=== PATIENT | male | born 1995 | race Caucasian/White ===

== ENCOUNTER 2021-01-09 17:31 | Inpatient (IN) | payer OTHER ==
[~2021-01-09] VITALS: Ht 190.5 cm; Wt 98.6 kg
[2021-01-09] MEDS ORDERED: 0.9%NACL 1000ML 1,000 ML IV ONE ×2 (17:48→19:14)
[2021-01-09] MEDS ORDERED: ONDANSETRON 4MG INJ ONE (17:48)
[2021-01-09] MEDS ORDERED: KETOROLAC 30MG VIAL (30MG/ML) ONE (17:48)
[2021-01-09 18:08] LABS: BASOPHILS % (AUTO) 0.8 % (0.0-5.0); EOSINOPHILS % (AUTO) 1.4 % (0.0-8.0); HEMATOCRIT 47.8 % (42-54); LYMPHOCYTES % (AUTO) 26.1 % (21.0-51.0); MEAN CORPUSCULAR HEMOGLOBIN 28.2 pg (27.0-33.0); MEAN CORPUSCULAR HGB CONC 35.1 g/dL (32.0-36.0); MEAN CORPUSCULAR VOLUME 80.3 fL (79-99); MONOCYTES % (AUTO) 10.3 % (3.0-13.0); NEUTROPHILS % (AUTO) 61.1 % (40.0-77.0); PLATELET COUNT (AUTO) 299 K/uL (130-400); RED BLOOD CELL COUNT(AUTO) 5.95 MIL/uL (4.50-6.20); RED CELL DISTRIBUTION WIDTH 14.1 % (11.0-15.5); WHITE BLOOD COUNT (AUTO) 9.7 K/uL (4.8-10.8)
[2021-01-09 18:09] LABS: APPEARANCE,URINE Clear (CLEAR); BILIRUBIN,URINE Negative (NEGATIVE); COLOR,URINE Yellow (YELLOW); GLUCOSE, URINE (UA) >=1000 mg/dL (NEGATIVE); KETONES,URINE >=160 mg/dL (NEGATIVE); LEUKOCYTE ESTERASE ,URINE Negative (NEGATIVE); NITRATE,URINE Negative (NEGATIVE); OCCULT BLOOD,URINE Negative (NEGATIVE); PROTEIN,URINE POS 1+ mg/dL (NEGATIVE); UROBILINOGEN,URINE 0.2 mg/dL (0.2-1.0)
[2021-01-09 18:15] LABS: AMPHET/METH SCREEN,URINE NEGATIVE (NEGATIVE); BARBITURATE SCREEN, URINE NEGATIVE (NEGATIVE); BENZODIAZEPINES SCREEN,URINE NEGATIVE (NEGATIVE); CANNABINOID SCREEN,URINE NEGATIVE (NEGATIVE); COCAINE SCREEN,URINE NEGATIVE (NEGATIVE); OPIATE SCREEN,URINE NEGATIVE (NEGATIVE); PHENCYCLIDINE SCREEN,URINE NEGATIVE (NEGATIVE)
[2021-01-09 18:19] LABS: RBC,URINE None Seen /HPF (0-1); WBC,URINE None Seen /HPF (0-1)
[2021-01-09 18:20] LABS: BACTERIA,URINE Rare /HPF (None Seen); SQUAMOUS EPITHELIAL CELL,UR 0-2 /HPF (0-2)
[2021-01-09 18:22] LABS: CREATININE 1.4 mg/dL (0.5-1.5); POTASSIUM 3.7 mmol/L (3.5-5.1)
[2021-01-09 18:29] LABS: ALBUMIN 4.1 g/dL (3.5-5.0); TOTAL PROTEIN, SERUM 7.6 g/dL (6.0-8.3)
[2021-01-09 18:46] LABS: ABG BASE EXCESS -12.6 mmol/L (-2.0-3.0); ABG HCO3 11.7 mmol/L (21.0-28.0); ABG OXYGEN SATURATION 97.5 % (95.0-99.0); ABG PCO2 24 mmHg (35-48)
[2021-01-09] MEDS ORDERED: INSULIN HUMULIN R 100 UNIT/ML 3ML ONE ×2 (19:13→21:55)
[2021-01-09] MEDS ORDERED: 0.9%NACL 100ML 100 ML IV ONE (21:56)
[2021-01-09] MEDS ORDERED: POTASSIUM CHLORIDE 20MEQ/100ML 100 ML IV ONE (22:48)
[2021-01-09 23:32] VITALS: BP 140/68
[2021-01-09 23:47] VITALS: BP 148/99
[2021-01-10] VITALS (31 sets, daily range): BP systolic 117–167; BP diastolic 45–99
[2021-01-10 00:09] LABS: CREATININE 1.2 mg/dL (0.5-1.5); MAGNESIUM 1.8 mg/dL (1.80-2.40); POTASSIUM 3.5 mmol/L (3.5-5.1)
[2021-01-10] MEDS ORDERED: PROMETHAZINE HCL 25 MG/ML 1ML AMPULE IM PRN (01:15)
[2021-01-10] MEDS ORDERED: POTASSIUM CHLORIDE 20MEQ/10ML 0 MEQ in 0.9%NACL 1000ML 1,000 ML IV SCH (01:15)
[2021-01-10] MEDS ORDERED: ONDANSETRON 4MG INJ IVP PRN (01:15)
[2021-01-10] MEDS ORDERED: NS-20 MEQ KCL 1000ML 1,000 ML IV ONE (01:56)
[2021-01-10] MEDS ORDERED: POTASSIUM CHLORIDE 20MEQ/100ML 100 ML IV ONE (01:59)
[2021-01-10] MEDS ORDERED: MAGN400T40 PO (02:06)
[2021-01-10] MEDS ORDERED: LORA10TA7 PO (02:06)
[2021-01-10] MEDS ORDERED: FLUT200B IH (02:06)
[2021-01-10] MEDS ORDERED: BUPR100T13 PO (02:06)
[2021-01-10] MEDS ORDERED: TOPI25TA48 PO (02:06)
[2021-01-10] MEDS ORDERED: DOXY100T21 PO (02:06)
[2021-01-10] MEDS ORDERED: METF-444 PO (02:06)
[2021-01-10] MEDS ORDERED: 0.9%NACL 100ML 100 ML IV ONE (02:18)
[2021-01-10] MEDS: MAGNESIUM 2GM PREMIX 50ML 50 ML IV PRN (03:18)
[2021-01-10 04:01] LABS: HEMATOCRIT 45.1 % (42-54); MEAN CORPUSCULAR HEMOGLOBIN 27.3 pg (27.0-33.0); MEAN CORPUSCULAR HGB CONC 33.5 g/dL (32.0-36.0); MEAN CORPUSCULAR VOLUME 81.4 fL (79-99); PLATELET COUNT (AUTO) 284 K/uL (130-400); RED BLOOD CELL COUNT(AUTO) 5.54 MIL/uL (4.50-6.20); RED CELL DISTRIBUTION WIDTH 14.3 % (11.0-15.5); WHITE BLOOD COUNT (AUTO) 8.7 K/uL (4.8-10.8)
[2021-01-10 04:18] LABS: ALBUMIN 3.6 g/dL (3.5-5.0); CREATININE 1.5 mg/dL (0.5-1.5); TOTAL PROTEIN, SERUM 6.9 g/dL (6.0-8.3)
[2021-01-10 05:19] LABS: BAND NEUTROPHILS % (MANUAL) 1 % (0-2); EOSINOPHILS % (MANUAL) 2 % (1-6); LYMPHOCYTES % (MANUAL) 27 % (22-44); MAN.DIFF COMMENT-IMPRESSION MANUAL DIFFERENTIAL; MONOCYTES % (MANUAL) 6 % (2-9); SEGMENTED NEUTROPHILS % 64 % (40-70)
[2021-01-10 05:20] LABS: PLATELET MORPHOLOGY COMMENT ADEQUATE
[2021-01-10] MEDS ORDERED: 0.9%NACL 1000ML 1,000 ML IV SCH (09:00)
[2021-01-10] MEDS ORDERED: BISACODYL 10 MG SUPP.RECT RC PRN (09:00)
[2021-01-10 09:11] LABS: CREATININE 1.4 mg/dL (0.5-1.5); MAGNESIUM 2.2 mg/dL (1.80-2.40); POTASSIUM 3.5 mmol/L (3.5-5.1)
[2021-01-10] MEDS ORDERED: MAGNESIUM 2GM PREMIX 50ML 50 ML IV PRN (09:15)
[2021-01-10] MEDS: TOPIRAMATE 25 MG TABLET PO SCH ×2 (10:46→20:36)
[2021-01-10] MEDS: PANTOPRAZOLE 40 MG/VIAL IVP SCH ×2 (10:46→20:36)
[2021-01-10] MEDS: BUPROPION HCL 150 MG TABLET.SA PO SCH ×2 (10:46→20:36)
[2021-01-10] MEDS: ENOXAPARIN SODIUM 40 MG/0.4 ML SYRINGE SQ SCH (10:47)
[2021-01-10] MEDS ORDERED: LABETALOL 20MG VIAL IV PRN (12:15)
[2021-01-10 12:48] LABS: CREATININE 1.3 mg/dL (0.5-1.5); POTASSIUM 3.5 mmol/L (3.5-5.1)
[2021-01-10] MEDS: [UNRECOGNIZED DRUG - OTHER] IV SCH (13:06)
[2021-01-10] MEDS: POTASSIUM CHLORIDE IV SCH (13:06)
[2021-01-10] MEDS: INSULIN REGULAR, HUMAN 3ML 100 UNIT in 0.9%NACL 100ML 99 ML IV PRN ×2 (13:12)
[2021-01-10] MEDS: KCL 20 MEQ ERTAB PO PRN ×2 (14:20→17:06)
[2021-01-10 16:25] LABS: CREATININE 1.3 mg/dL (0.5-1.5); POTASSIUM 3.5 mmol/L (3.5-5.1)
[2021-01-10] MEDS: LACTATED RINGERS 1000ML 1,000 ML IV SCH ×2 (17:37→21:46)
[2021-01-10 20:48] LABS: CREATININE 1.3 mg/dL (0.5-1.5); POTASSIUM 3.3 mmol/L (3.5-5.1)
[2021-01-11] VITALS (33 sets, daily range): BP systolic 102–164; BP diastolic 48–93
[2021-01-11 03:30] LABS: HEMATOCRIT 41.2 % (42-54); MEAN CORPUSCULAR HEMOGLOBIN 27.9 pg (27.0-33.0); MEAN CORPUSCULAR HGB CONC 34.2 g/dL (32.0-36.0); MEAN CORPUSCULAR VOLUME 81.4 fL (79-99); RED BLOOD CELL COUNT(AUTO) 5.06 MIL/uL (4.50-6.20); RED CELL DISTRIBUTION WIDTH 14.9 % (11.0-15.5); WHITE BLOOD COUNT (AUTO) 6.5 K/uL (4.8-10.8)
[2021-01-11 03:43] LABS: CREATININE 1.2 mg/dL (0.5-1.5); MAGNESIUM 1.7 mg/dL (1.80-2.40); POTASSIUM 3.3 mmol/L (3.5-5.1)
[2021-01-11] MEDS: LACTATED RINGERS 1000ML 1,000 ML IV SCH ×3 (06:15→22:15)
[2021-01-11 07:49] LABS: HEMOGLOBIN A1C 11.3 % (4.0-6.0)
[2021-01-11 07:55] LABS: ABG OXYGEN SATURATION 66.9 % (95.0-99.0); BASE EXCESS,VENOUS BLOOD GAS -6.3 (-2.0-3.0); HCO3,VENOUS BLOOD GAS 18.3 (21.0-28.0); PCO2,VENOUS BLOOD GAS 34 (35-48); PH,VENOUS BLOOD GAS 7.346 (7.350-7.450)
[2021-01-11] MEDS: BUPROPION HCL 150 MG TABLET.SA PO SCH ×2 (08:38→20:00)
[2021-01-11] MEDS: PANTOPRAZOLE 40 MG/VIAL IVP SCH ×2 (08:38→20:00)
[2021-01-11] MEDS: TOPIRAMATE 25 MG TABLET PO SCH ×2 (08:39→20:00)
[2021-01-11] MEDS: ENOXAPARIN SODIUM 40 MG/0.4 ML SYRINGE SQ SCH (08:40)
[2021-01-11] MEDS: KCL 20 MEQ ERTAB PO PRN ×2 (08:44→11:02)
[2021-01-11] MEDS: INSULIN REGULAR, HUMAN 3ML 100 UNIT in 0.9%NACL 100ML 99 ML IV PRN ×2 (09:51)
[2021-01-11] MEDS: MAGNESIUM 2GM PREMIX 50ML 50 ML IV PRN (11:02)
[2021-01-11 15:20] LABS: CREATININE 1.1 mg/dL (0.5-1.5); POTASSIUM 3.1 mmol/L (3.5-5.1)
[2021-01-11 21:09] LABS: POTASSIUM 3.2 mmol/L (3.5-5.1)
[2021-01-12] VITALS (35 sets, daily range): BP systolic 94–159; BP diastolic 46–101
[2021-01-12] MEDS ORDERED: INSULIN HUMULIN R 100 UNIT/ML 3ML ONE (02:11)
[2021-01-12 03:45] LABS: HEMATOCRIT 40.6 % (42-54); MEAN CORPUSCULAR HEMOGLOBIN 28.1 pg (27.0-33.0); MEAN CORPUSCULAR HGB CONC 34.7 g/dL (32.0-36.0); MEAN CORPUSCULAR VOLUME 80.9 fL (79-99); RED BLOOD CELL COUNT(AUTO) 5.02 MIL/uL (4.50-6.20)
[2021-01-12 03:57] LABS: PHOSPHORUS 2.4 mg/dL (2.5-4.9)
[2021-01-12 04:20] LABS: POTASSIUM 2.8 mmol/L (3.5-5.1)
[2021-01-12] MEDS: POTASSIUM CHLORIDE 10% ELIXIR 20 MEQ/15 ML UDCUP PO PRN ×2 (04:28→04:29)
[2021-01-12] MEDS: POTASSIUM CHLORIDE IV SCH (04:29)
[2021-01-12] MEDS: [UNRECOGNIZED DRUG - OTHER] IV SCH (04:29)
[2021-01-12] MEDS: LACTATED RINGERS 1000ML 1,000 ML IV SCH ×3 (04:30→21:51)
[2021-01-12 07:24] LABS: MAGNESIUM 1.8 mg/dL (1.80-2.40)
[2021-01-12] MEDS: PANTOPRAZOLE 40 MG/VIAL IVP SCH ×2 (07:45→20:56)
[2021-01-12] MEDS: TOPIRAMATE 25 MG TABLET PO SCH ×2 (07:45→20:56)
[2021-01-12] MEDS: KCL 20 MEQ ERTAB PO PRN ×3 (07:46→13:42)
[2021-01-12] MEDS: ENOXAPARIN SODIUM 40 MG/0.4 ML SYRINGE SQ SCH (07:46)
[2021-01-12] MEDS: POTASSIUM CHLORIDE 20MEQ/100ML 100 ML IV PRN ×2 (07:47→18:59)
[2021-01-12] MEDS: MAGNESIUM 2GM PREMIX 50ML 50 ML IV PRN (07:48)
[2021-01-12] MEDS: BUPROPION HCL 150 MG TABLET.SA PO SCH ×2 (08:52→20:56)
[2021-01-12] MEDS: INSULIN REGULAR, HUMAN 3ML 100 UNIT in 0.9%NACL 100ML 99 ML IV PRN ×2 (08:59)
[2021-01-12 15:09] LABS: POTASSIUM 3.4 mmol/L (3.5-5.1)
[2021-01-12 20:49] LABS: CREATININE 1.1 mg/dL (0.5-1.5); POTASSIUM 3.5 mmol/L (3.5-5.1)
[2021-01-12] MEDS: INSULIN HUMULIN R 100 UNIT/ML 3ML SQ SCH (20:57)
[2021-01-12] MEDS ORDERED: INSULIN GLARGINE 100 UNITS/ML 10 ML VIAL SQ SCH (21:00)
[2021-01-13] VITALS (22 sets, daily range): BP systolic 100–156; BP diastolic 52–99
[2021-01-13 04:11] LABS: MAGNESIUM 1.8 mg/dL (1.80-2.40); PHOSPHORUS 2.3 mg/dL (2.5-4.9)
[2021-01-13] MEDS: MAGNESIUM 2GM PREMIX 50ML 50 ML IV PRN (05:41)
[2021-01-13] MEDS: LACTATED RINGERS 1000ML 1,000 ML IV SCH (06:17)
[2021-01-13] MEDS: INSULIN HUMULIN R 100 UNIT/ML 3ML SQ SCH ×4 (06:35→20:36)
[2021-01-13] MEDS: TOPIRAMATE 25 MG TABLET PO SCH ×2 (08:59→20:26)
[2021-01-13] MEDS: PANTOPRAZOLE 40 MG/VIAL IVP SCH (08:59)
[2021-01-13] MEDS: KCL 20 MEQ ERTAB PO PRN ×2 (08:59→20:25)
[2021-01-13] MEDS: ENOXAPARIN SODIUM 40 MG/0.4 ML SYRINGE SQ SCH (09:01)
[2021-01-13] MEDS: BUPROPION HCL 150 MG TABLET.SA PO SCH ×2 (09:04→20:25)
[2021-01-13 12:11] LABS: ALBUMIN 3.1 g/dL (3.5-5.0); BILIRUBIN,TOTAL 0.7 mg/dL (0.2-1.0); CREATININE 0.9 mg/dL (0.5-1.5); MAGNESIUM 1.8 mg/dL (1.80-2.40); PHOSPHORUS 1.7 mg/dL (2.5-4.9); POTASSIUM 3.5 mmol/L (3.5-5.1); TOTAL PROTEIN, SERUM 5.7 g/dL (6.0-8.3)
[2021-01-13] MEDS: FAMOTIDINE 20MG VIAL IV SCH (20:25)
[2021-01-13] MEDS ORDERED: INSULIN GLARGINE 100 UNITS/ML 10 ML VIAL SQ SCH (21:00)
[2021-01-14 00:28] VITALS: BP 105/55
[2021-01-14 03:45] VITALS: BP 108/64
[2021-01-14 06:05] LABS: HEMATOCRIT 39.6 % (42-54); MEAN CORPUSCULAR HEMOGLOBIN 28.2 pg (27.0-33.0); MEAN CORPUSCULAR HGB CONC 34.1 g/dL (32.0-36.0); MEAN CORPUSCULAR VOLUME 82.7 fL (79-99); RED BLOOD CELL COUNT(AUTO) 4.79 MIL/uL (4.50-6.20); RED CELL DISTRIBUTION WIDTH 15.2 % (11.0-15.5); WHITE BLOOD COUNT (AUTO) 5.6 K/uL (4.8-10.8)
[2021-01-14 06:06] LABS: CREATININE 0.9 mg/dL (0.5-1.5); MAGNESIUM 1.8 mg/dL (1.80-2.40); POTASSIUM 3.7 mmol/L (3.5-5.1)
[2021-01-14] MEDS: MAGNESIUM 2GM PREMIX 50ML 50 ML IV PRN (06:34)
[2021-01-14] MEDS: KCL 20 MEQ ERTAB PO PRN ×2 (06:35→09:16)
[2021-01-14] MEDS: INSULIN HUMULIN R 100 UNIT/ML 3ML SQ SCH ×4 (06:36→12:13)
[2021-01-14 07:30] VITALS: BP 122/83
[2021-01-14] MEDS: FAMOTIDINE 20MG VIAL IV SCH (09:15)
[2021-01-14] MEDS: TOPIRAMATE 25 MG TABLET PO SCH (09:16)
[2021-01-14] MEDS: BUPROPION HCL 150 MG TABLET.SA PO SCH (09:16)
[2021-01-14] MEDS: ENOXAPARIN SODIUM 40 MG/0.4 ML SYRINGE SQ SCH (09:17)
[2021-01-14 11:00] VITALS: BP 109/81
[2021-01-14] MEDS ORDERED: FLUTICASONE FUROATE 200 MCG IH SCH (12:00)
[2021-01-14] MEDS ORDERED: BUPROPION HCL 200 MG PO SCH ×2 (21:00)
[2021-01-15] MEDS ORDERED: FLUTICASONE FUROATE 200 MCG IH SCH (09:00)
[2021-01-15] MEDS ORDERED: LORATADINE 10 MG TABLET PO SCH (09:00)
== END 2021-01-14 14:00 | disposition home or self-care (01) | DRG 638 ==
LOC: EDH 17:31 → EDHIP 21:18 → 2CH 22:37 → 3CH 01-13 15:31
PROVIDERS: ADMIT Internal Medicine Pulmonary Disease; ATTEND Internal Medicine Pulmonary Disease
DX: E11.10 Type 2 diabetes mellitus with ketoacidosis without coma (principal); E87.1 Hypo-osmolality and hyponatremia; E66.01 Morbid (severe) obesity due to excess calories; K76.0 Fatty (change of) liver, not elsewhere classified; J45.909 Unspecified asthma, uncomplicated; Z20.822 Contact with and (suspected) exposure to COVID-19; E86.0 Dehydration; K59.00 Constipation, unspecified; L08.9 Local infection of the skin and subcutaneous tissue, unspecified; Z68.27 Body mass index [BMI] 27.0-27.9, adult; Z79.84 Long term (current) use of oral hypoglycemic drugs; Z83.3 Family history of diabetes mellitus
CPT/HCPCS: 36415; 36600; 71045; 74176; 80048; 80053; 80305; 81001; 82010; 82803; 82948; 83036; 83690; 83735; 84100; 84145; 85025; 85027; 87040; 87426; 87804; 97039; 99291; C9113; G0378; J1650; J1815; J1885; J2405; J3475; J3480; J3490; J7030; J7120; U0003